=== PATIENT | male | born 1970 | race Caucasian/White ===

== ENCOUNTER 2024-02-21 13:31 | Inpatient (IN) | payer OTHER ==
[2024-02-21 14:38] VITALS: BMI 26.6
[2024-02-21] MEDS ORDERED: MAG HYDROX/AL HYDROX/SIMETH 30 ML UNIT-DOSE CUP PO PRN (16:28)
[2024-02-21] MEDS ORDERED: NALOXONE HCL 0.4 MG/ML VIAL IM PRN (16:28)
[2024-02-21] MEDS ORDERED: DICYCLOMINE HCL 10 MG CAPSULE PO PRN (16:28)
[2024-02-21] MEDS ORDERED: LOPERAMIDE HCL 2 MG CAPSULE PO PRN (16:28)
[2024-02-21] MEDS ORDERED: IBUPROFEN 400 MG TABLET (FP) PO PRN (16:28)
[2024-02-21] MEDS ORDERED: IBUPROFEN 600 MG TABLET (FP) PO PRN (16:28)
[2024-02-21] MEDS ORDERED: METHOCARBAMOL 500 MG TABLET PO PRN (16:28)
[2024-02-21] MEDS ORDERED: BENZOCAINE/MENTHOL (CHLORASEPTIC ) LOZENGE MM PRN (16:28)
[2024-02-21] MEDS ORDERED: BISMUTH SUBSALICYLATE 524 MG/30 ML PO PRN (16:28)
[2024-02-21] MEDS ORDERED: BENZONATATE 200 MG CAPSULE PO PRN (16:28)
[2024-02-21] MEDS ORDERED: MAGNESIUM HYDROX 2400MG/30ML ORAL SUSPENSION 30 ML CUP PO PRN (16:28)
[2024-02-21] MEDS ORDERED: POLYETHYLENE GLYCOL (HEALTHYLAX) 3350 17 GM PACKET PO PRN (16:28)
[2024-02-21] MEDS ORDERED: NALOXONE (NARCAN) HCL 4 MG/0.1 ML SPRAY NS PRN (16:28)
[2024-02-21] MEDS ORDERED: guaiFENesin 600 MG TABLET.ER (FP) PO PRN (16:28)
[2024-02-21] MEDS: MELATONIN 5 MG TABLETS PO SCH (22:19)
[2024-02-21] MEDS: THIAMINE 100 MG TABLET PO SCH (22:22)
[2024-02-21] MEDS: diazePAM 5 MG TABLET PO SCH (22:22)
[2024-02-21] MEDS: BUPRENORPHINE/NALOXONE 8 MG/2 MG FILM PACKET SL SCH (22:23)
[2024-02-22] MEDS: diazePAM 5 MG TABLET PO PRN (00:43)
[2024-02-22] MEDS: PRENATAL VITAMINS W/ FOLIC ACID TABLET (FP) PO SCH (09:21)
[2024-02-22 09:32] LABS: CHLORIDE 102 mmol/L (98-107); POTASSIUM 3.8 mmol/L (3.5-5.1); SODIUM 139 mmol/L (136-145)
[2024-02-22 09:33] LABS: HEMATOCRIT 36.9 % (35.4-49); HEMOGLOBIN 12.8 GM/dL (11.7-16.9); MCHC 34.8 g/dl (32.0-35.9); MEAN PLT VOLUME 8.1 fl (7.5-11.1); PLATELET COUNT 226 10^3/uL (134-434); RBC 4.29 M/mm3 (4.00-5.60); RDW 13.2 % (11.9-15.9); WHITE BLOOD COUNT 6.5 K/mm3 (4.0-10.0)
[2024-02-22 09:39] LABS: CALCIUM 8.7 mg/dL (8.5-10.1); SGPT/ALT 19 U/L (13-61)
[2024-02-22 09:40] LABS: ALBUMIN 3.1 g/dl (3.4-5.0); ANION GAP 5 mmol/L (4-13); BLOOD UREA NITROGEN 20.5 mg/dL (7-18); CO2 31 mmol/L (21-32); GLUCOSE,RANDOM 141 mg/dL (74-106)
[2024-02-22 09:41] LABS: TOT PROT 6.2 g/dl (6.4-8.2)
[2024-02-22 09:42] LABS: ALK PHOS 109 U/L (45-117); SGOT/AST 14 U/L (15-37)
[2024-02-22 09:43] LABS: CREATININE 0.8 mg/dL (0.55-1.3)
[2024-02-22 09:51] LABS: BILIRUBIN,TOTAL 0.4 mg/dL (0.2-1)
[2024-02-22] MEDS: GABAPENTIN 300 MG CAPSULE PO SCH (13:56)
[2024-02-22] MEDS ORDERED: NICOTINE 14 MG/24 HOURS TOPICAL PATCH TD PRN (14:01)
[2024-02-22] MEDS: NICOTINE POLACRILEX 2 MG GUM BUC PRN (17:22)
[2024-02-22] MEDS: hydrOXYzine PAMOATE 25 MG CAPSULE (FP) PO PRN (19:32)
[2024-02-22] MEDS: BUPRENORPHINE/NALOXONE 8 MG/2 MG FILM PACKET SL ONE (22:44)
[2024-02-23] MEDS: diazePAM 5 MG TABLET PO SCH (06:00)
[2024-02-23] MEDS: ONDANSETRON *ODT* 4 MG TABLET SL PRN (13:35)
[2024-02-23] MEDS: diazePAM 5 MG TABLET PO ONE ×2 (15:11→15:13)
[2024-02-23] MEDS: ACETAMINOPHEN 325 MG TABLET (FP) PO PRN (22:24)
[2024-02-24] MEDS: diazePAM 5 MG TABLET PO SCH (07:45)
[2024-02-24] MEDS: HYDROCORTISONE 1% TOPICAL CREAM 30 GM TUBE TP PRN (09:27)
[2024-02-25] MEDS: diazePAM 5 MG TABLET PO ONE (05:29)
[2024-02-26 12:59] VITALS: BP 106/68; PULSE 71; RESP 16; TEMP 96.9
== END 2024-02-26 12:39 | disposition home or self-care (01) | DRG 773 ==
LOC: YASAS 13:31 → Y6N 16:55
PROVIDERS: ADMIT Allergy & Immunology; ATTEND Surgery
PROC: HZ2ZZZZ Detoxification Services for Substance Abuse Treatment (ICD-10-PCS; principal; 2024-02-21)
DX: F11.23 Opioid dependence with withdrawal (principal); F10.230 Alcohol dependence with withdrawal, uncomplicated; F17.210 Nicotine dependence, cigarettes, uncomplicated; F41.9 Anxiety disorder, unspecified; F32.A Depression, unspecified; M17.0 Bilateral primary osteoarthritis of knee; L29.9 Pruritus, unspecified; R73.09 Other abnormal glucose; Z21 Asymptomatic human immunodeficiency virus [HIV] infection status; R26.2 Difficulty in walking, not elsewhere classified; Z99.89 Dependence on other enabling machines and devices; Z86.19 Personal history of other infectious and parasitic diseases
CPT/HCPCS: 36415; 80053; 80305; 80307; 83036; 85027; 86780; 93005; 93010; Q0162

== ENCOUNTER 2024-03-11 12:04 | Inpatient (IN) | payer OTHER ==
[2024-03-11 12:59] VITALS: BMI 26.6
[2024-03-11] MEDS ORDERED: POLYETHYLENE GLYCOL (HEALTHYLAX) 3350 17 GM PACKET PO PRN (15:13)
[2024-03-11] MEDS ORDERED: guaiFENesin 600 MG TABLET.ER (FP) PO PRN (15:13)
[2024-03-11] MEDS ORDERED: IBUPROFEN 600 MG TABLET (FP) PO PRN (15:13)
[2024-03-11] MEDS ORDERED: NALOXONE HCL 0.4 MG/ML VIAL IM PRN (15:13)
[2024-03-11] MEDS ORDERED: BENZONATATE 200 MG CAPSULE PO PRN (15:13)
[2024-03-11] MEDS ORDERED: METHOCARBAMOL 500 MG TABLET PO PRN (15:13)
[2024-03-11] MEDS ORDERED: BISMUTH SUBSALICYLATE 524 MG/30 ML PO PRN (15:13)
[2024-03-11] MEDS ORDERED: MAGNESIUM HYDROX 2400MG/30ML ORAL SUSPENSION 30 ML CUP PO PRN (15:13)
[2024-03-11] MEDS ORDERED: IBUPROFEN 400 MG TABLET (FP) PO PRN (15:13)
[2024-03-11] MEDS ORDERED: DICYCLOMINE HCL 10 MG CAPSULE PO PRN (15:13)
[2024-03-11] MEDS ORDERED: LOPERAMIDE HCL 2 MG CAPSULE PO PRN (15:13)
[2024-03-11] MEDS ORDERED: BENZOCAINE/MENTHOL (CHLORASEPTIC ) LOZENGE MM PRN (15:13)
[2024-03-11] MEDS ORDERED: hydrOXYzine PAMOATE 25 MG CAPSULE (FP) PO PRN (15:13)
[2024-03-11] MEDS ORDERED: NALOXONE (NARCAN) HCL 4 MG/0.1 ML SPRAY NS PRN (15:13)
[2024-03-11] MEDS ORDERED: ONDANSETRON *ODT* 4 MG TABLET SL PRN (15:13)
[2024-03-11] MEDS ORDERED: MAG HYDROX/AL HYDROX/SIMETH 30 ML UNIT-DOSE CUP PO PRN (15:13)
[2024-03-11] MEDS: diazePAM 5 MG TABLET PO SCH (17:12)
[2024-03-11] MEDS: MELATONIN 5 MG TABLETS PO SCH (22:17)
[2024-03-11] MEDS: THIAMINE 100 MG TABLET PO SCH (22:17)
[2024-03-11] MEDS: BUPRENORPHINE/NALOXONE 8 MG/2 MG FILM PACKET SL SCH (22:19)
[2024-03-12 10:08] LABS: HEMATOCRIT 35.2 % (35.4-49); HEMOGLOBIN 11.8 GM/dL (11.7-16.9); MCH 29.4 pg (25.7-33.7); MCHC 33.6 g/dl (32.0-35.9); MEAN CELL VOLUME 87.3 fl (80-96); MEAN PLT VOLUME 7.2 fl (7.5-11.1); PLATELET COUNT 283 10^3/uL (134-434); RBC 4.03 M/mm3 (4.00-5.60); RDW 14.1 % (11.9-15.9); WHITE BLOOD COUNT 5.2 K/mm3 (4.0-10.0)
[2024-03-12] MEDS: PRENATAL VITAMINS W/ FOLIC ACID TABLET (FP) PO SCH (10:16)
[2024-03-12 11:27] LABS: CHLORIDE 109 mmol/L (98-107); POTASSIUM 3.7 mmol/L (3.5-5.1); SODIUM 146 mmol/L (136-145)
[2024-03-12 11:34] LABS: CALCIUM 8.7 mg/dL (8.5-10.1)
[2024-03-12 11:35] LABS: ALBUMIN 2.9 g/dl (3.4-5.0); ANION GAP 7 mmol/L (4-13); CO2 29 mmol/L (21-32); GLUCOSE,RANDOM 109 mg/dL (74-106)
[2024-03-12 11:36] LABS: BLOOD UREA NITROGEN 18.2 mg/dL (7-18)
[2024-03-12 11:37] LABS: SGPT/ALT 20 U/L (13-61)
[2024-03-12 11:38] LABS: BILIRUBIN,TOTAL 0.4 mg/dL (0.2-1); CREATININE 0.8 mg/dL (0.55-1.3); TOT PROT 5.7 g/dl (6.4-8.2)
[2024-03-12 11:39] LABS: ALK PHOS 86 U/L (45-117); SGOT/AST 22 U/L (15-37)
[2024-03-12] MEDS: diazePAM 5 MG TABLET PO PRN (13:06)
[2024-03-12 21:29] LABS: PH,URINE 7.5 (5.0-8.0); URINE APPEARANCE CLOUDY; URINE BILIRUBIN NEGATIVE (NEGATIVE); URINE COLOR YELLOW; URINE GLUCOSE (UA) NEGATIVE (NEGATIVE); URINE KETONE NEGATIVE (NEGATIVE); URINE LEUK ESTERASE NEGATIVE (NEGATIVE); URINE NITRITE NEGATIVE (NEGATIVE); URINE PROTEIN NEGATIVE (NEGATIVE)
[2024-03-12] MEDS: GABAPENTIN 400 MG CAPSULE PO SCH (22:09)
[2024-03-13] MEDS: diazePAM 5 MG TABLET PO SCH (05:52)
[2024-03-13] MEDS: NICOTINE 21 MG/24 HOURS TOPICAL PATCH TD SCH (10:02)
[2024-03-13] MEDS: NICOTINE POLACRILEX 2 MG GUM BUC PRN (10:03)
[2024-03-14] MEDS: diazePAM 5 MG TABLET PO SCH (05:27)
[2024-03-14] MEDS: ACETAMINOPHEN 325 MG TABLET (FP) PO PRN (17:27)
[2024-03-15] MEDS: diazePAM 5 MG TABLET PO ONE (05:57)
[2024-03-15] MEDS: NICOTINE POLACRILEX 2 MG GUM BUC PRN (06:42)
[2024-03-15] MEDS: HYDROCORTISONE 0.5% TOPICAL CREAM 30 GM TUBE TP SCH (14:46)
[2024-03-16] MEDS: SERTRALINE HCL 50 MG TABLET (FP) PO SCH (09:43)
[2024-03-16 16:52] VITALS: BP 103/64; PULSE 68; RESP 18; TEMP 97.5
== END 2024-03-16 17:52 | disposition other institution (70) | DRG 773 ==
LOC: YASAS 12:04 → Y3N 15:01
PROVIDERS: ADMIT Surgery; ATTEND Surgery
PROC: HZ2ZZZZ Detoxification Services for Substance Abuse Treatment (ICD-10-PCS; principal; 2024-03-11)
DX: F10.230 Alcohol dependence with withdrawal, uncomplicated (principal); F14.20 Cocaine dependence, uncomplicated; F11.20 Opioid dependence, uncomplicated; F17.210 Nicotine dependence, cigarettes, uncomplicated; F10.24 Alcohol dependence with alcohol-induced mood disorder; F51.05 Insomnia due to other mental disorder; G62.9 Polyneuropathy, unspecified; E86.0 Dehydration; Z86.19 Personal history of other infectious and parasitic diseases; Z99.89 Dependence on other enabling machines and devices
CPT/HCPCS: 36415; 80053; 80305; 80307; 81003; 85027; 86780; 87811; 93005; 93010

== ENCOUNTER 2024-03-16 17:57 | Inpatient (IN) | payer OTHER ==
[2024-03-16] MEDS ORDERED: MAG HYDROX/AL HYDROX/SIMETH 30 ML UNIT-DOSE CUP PO PRN (18:44)
[2024-03-16] MEDS ORDERED: NALOXONE HCL 0.4 MG/ML VIAL IVPUSH PRN (18:44)
[2024-03-16] MEDS ORDERED: BENZONATATE 200 MG CAPSULE PO PRN (18:44)
[2024-03-16] MEDS ORDERED: POLYETHYLENE GLYCOL (HEALTHYLAX) 3350 17 GM PACKET PO PRN (18:44)
[2024-03-16] MEDS ORDERED: guaiFENesin 600 MG TABLET.ER (FP) PO PRN (18:44)
[2024-03-16] MEDS ORDERED: METHOCARBAMOL 500 MG TABLET PO PRN (18:44)
[2024-03-16] MEDS ORDERED: LOPERAMIDE HCL 2 MG CAPSULE PO PRN (18:44)
[2024-03-16] MEDS ORDERED: MAGNESIUM HYDROX 2400MG/30ML ORAL SUSPENSION 30 ML CUP PO PRN (18:44)
[2024-03-16] MEDS ORDERED: BENZOCAINE/MENTHOL (CHLORASEPTIC ) LOZENGE MM PRN (18:44)
[2024-03-16] MEDS ORDERED: hydrOXYzine PAMOATE 25 MG CAPSULE (FP) PO PRN (18:44)
[2024-03-16] MEDS ORDERED: ACETAMINOPHEN 325 MG TABLET (FP) PO PRN (18:44)
[2024-03-16] MEDS ORDERED: NALOXONE (NARCAN) HCL 4 MG/0.1 ML SPRAY NS PRN (18:44)
[2024-03-16] MEDS: NICOTINE POLACRILEX 2 MG GUM BUC PRN (20:41)
[2024-03-16] MEDS: BUPRENORPHINE/NALOXONE 8 MG/2 MG FILM PACKET SL SCH (21:15)
[2024-03-16] MEDS: MELATONIN 5 MG TABLETS PO SCH (21:16)
[2024-03-16] MEDS: THIAMINE 100 MG TABLET PO SCH (21:16)
[2024-03-16] MEDS: GABAPENTIN 400 MG CAPSULE PO SCH (21:16)
[2024-03-16] MEDS: HYDROCORTISONE 0.5% TOPICAL CREAM 30 GM TUBE TP PRN (21:28)
[2024-03-17] MEDS: PRENATAL VITAMINS W/ FOLIC ACID TABLET (FP) PO SCH (10:10)
[2024-03-17] MEDS: SERTRALINE HCL 50 MG TABLET (FP) PO SCH (10:10)
[2024-03-21] MEDS ORDERED: SERTRALINE HCL 50 MG TABLET (FP) PO SCH (11:27)
[2024-03-21] MEDS: ACAMPROSATE CALCIUM 333 MG TABLET.DR PO SCH (13:02)
[2024-03-21] MEDS: IBUPROFEN 400 MG TABLET (FP) PO PRN (17:29)
[2024-03-22] MEDS: SERTRALINE HCL 25 MG TABLET (FP) PO SCH (10:15)
[2024-03-23] MEDS: NICOTINE POLACRILEX 2 MG GUM BUC PRN (13:23)
[2024-03-23] MEDS: GABAPENTIN 300 MG CAPSULE PO SCH (21:23)
[2024-04-04] MEDS: IBUPROFEN 600 MG TABLET (FP) PO PRN (13:13)
[2024-04-04] MEDS: NICOTINE POLACRILEX 2 MG LOZENGE BC PRN (19:55)
[2024-04-12 09:55] VITALS: BP 97/64; PULSE 68; RESP 18; TEMP 97.8
== END 2024-04-12 09:52 | disposition home or self-care (01) | DRG 772 ==
LOC: YASAS 17:57 → Y5N 17:59
PROVIDERS: ADMIT Psychiatry & Neurology Pain Medicine; ATTEND Psychiatry & Neurology Pain Medicine
PROC: HZ42ZZZ Group Counseling for Substance Abuse Treatment, Cognitive-Behavioral (ICD-10-PCS; principal; 2024-03-16)
DX: F11.20 Opioid dependence, uncomplicated (principal); F10.20 Alcohol dependence, uncomplicated; F14.20 Cocaine dependence, uncomplicated; F17.210 Nicotine dependence, cigarettes, uncomplicated; F10.24 Alcohol dependence with alcohol-induced mood disorder; Z86.59 Personal history of other mental and behavioral disorders